=== PATIENT | male | born 1950 | race Two or more races ===

== ENCOUNTER 2018-12-08 05:10 | Day surgery (SDC) | payer OTHER | END 2018-12-08 09:20 | disposition home or self-care (01) | LOC: AMB-ENDOS 05:10 | DX: D12.8 Benign neoplasm of rectum (principal); K64.8 Other hemorrhoids ==

== ENCOUNTER 2018-12-23 14:14 | Inpatient (IN) | payer OTHER ==
[~2018-12-23] VITALS: Ht 177.8 cm; Wt 96.2 kg
[2019-01-15] MEDS ORDERED: ULTRACET PO (08:45)
== END 2019-01-15 09:58 | disposition home or self-care (01) | DRG 349 ==
LOC: O/R 01-14 05:35 → SURG 01-14 08:45
PROVIDERS: ADMIT Surgery
PROC: 3E0T3BZ Introduction of Anesthetic Agent into Peripheral Nerves and Plexi, Percutaneous Approach (ICD-10-PCS; 2019-01-14)
PROC: 0DBP7ZZ Excision of Rectum, Via Natural or Artificial Opening (ICD-10-PCS; principal; 2019-01-14 08:45)
DX: D12.8 Benign neoplasm of rectum (principal); I10 Essential (primary) hypertension

== ENCOUNTER 2020-02-08 09:00 | Day surgery (SDC) | payer OTHER ==
[~2020-02-08 09:00] MED LIST: ULTRACET PO
== END 2020-02-08 13:55 | disposition home or self-care (01) ==
LOC: AMB-ENDOS 09:00
PROVIDERS: ATTEND Surgery
DX: K62.89 Other specified diseases of anus and rectum (principal); K64.8 Other hemorrhoids; Z20.828 Contact with and (suspected) exposure to other viral communicable diseases